=== PATIENT | male | born 1995 | race Caucasian/White ===

== ENCOUNTER 2018-01-13 09:42 | Day surgery (SDC) | payer OTHER, SELFPAY ==
--- NOTE | 2018-01-13 | DI.CT.S_ITS ---
PROCEDURE: CT LUMBAR SPINE W CON INDICATIONS: POST MYELOGRAM LUMBAR RADICULOPATHY TECHNIQUE: After the administration of intravenous Isovue contrast, 3 mm thick sections acquired through the levels of interest. Sagittal and coronal reformats were then constructed. For radiation dose reduction, the following was used: automated exposure control. COMPARISON: None. FINDINGS: Image quality: Excellent. Bones: There is normal alignment and curvature of the lumbar spine. Incidental note made of small Schmorl's nodes in the inferior plate of the T11 vertebral body, superior and inferior plates of the T12, L1, L2 and L4 vertebral bodies and in the superior endplate of the L3 and S1 vertebral bodies. No vertebral body compression fractures. Soft tissues: Conus medullaris ends at L1. Visualized portion of the spinal cord is normal. Visualized paraspinal soft tissues are normal. L1-L2: Slight loss of disc height. Minimal, diffuse disc bulge. No central stenosis. No neural foraminal narrowing. L2-L3: Disc height is normal. Minimal, diffuse disc bulge. No central stenosis. No neural foraminal narrowing. L3-L4: Disc height is normal. Minimal, diffuse disc bulge. No central stenosis. No neural foraminal narrowing. L4-L5: Disc height is normal. Mild, diffuse disc bulge. Moderate-sized central/left central disc protrusion. Disc protrusion abuts and displaces the traversing left L5 nerve root. Mild ligamentum flavum hypertrophy. Moderate narrowing of the central canal secondary to disc disease and ligamentum flavum hypertrophy. Mild right and moderate left neural foraminal narrowing secondary to disc disease. L5-S1: Disc height is normal. Mild diffuse disc bulge with small central disc protrusion superimposed on diffuse disc bulge. Mild central canal secondary to disc disease. Moderate bilateral neural foraminal narrowing secondary to disc disease. IMPRESSION: 1. Mild multilevel degenerative disease. 2. Moderate L4-L5 central canal narrowing. Mild L5-S1 central canal narrowing. 3. Mild right moderate left L4-L5 neural foramen. Moderate bilateral L5-S1 neural foraminal narrowing. 4. Central/left central L4-L5 disc protrusion abuts and displaces the traversing left L5 nerve root. Please correlate with clinical data. Dictated by: Mary Loredo MD, PhD on 01/13/2018 at 13:20 Approved by: Mary Loredo MD, PhD on 01/13/2018 at 13:28
[2018-01-13 09:56] VITALS: BP 123/74; PULSE 61; RESP 16; TEMP 36.2; O2SAT 98; BMI 29.5
--- NOTE | 2018-01-13 09:59 | DI.RAD.S_ITS ---
PROCEDURE: IR INJECT SPINE FOR CT MYELOGRAM INDICATIONS: CONTRAST FOR CT WITH CONTRAST TECHNIQUE: The indications, alternatives, benefits, risks and complications of the procedure were explained to the patient. Written informed consent was obtained and placed in the chart. The patient was placed in a prone position on the fluoroscopy table, and a level was chosen for percutaneous access under fluoroscopic guidance. The skin was prepped and draped in a sterile fashion. After local anaesthetic, a spinal needle was then used to enter the intrathecal space, with return of clear cerebrospinal fluid. 15 mL of Isovue M-200 were administered intrathecally under fluoroscopic visualization. The needle was then withdrawn, and a bandage applied to the puncture site. Fluoroscopic spot films were then acquired in various positions. FINDINGS: Standing frontal, lateral, and oblique views demonstrate a broad-based posterior annular bulge at the L4-5 level, elevating the thecal sac and creating moderate central canal stenosis. Slight blunting of the left L5-S1 nerve root sleeve. No other nerve root sleeve amputation at any level. A small epidural extravasation noted at the injection level.. Access level: Left L4-5 Medications: 1% lidocaine for local anaesthesia. Complications: Patient was transferred to CT for subsequent CT myelogram. IMPRESSION: 1. Successful fluoroscopically guided administration of iodinated contrast into the lumbar spine central canal for CT myelogram. 2. Broad-based annular bulge L4-5. Slight blunting of the left L5-S1 sleeve. Referred to CT report for further evaluation. 3. Mild epidural extravasation at L4-5. Dictated by: Prateek Almanzar M.D. on 01/13/2018 at 13:05 Approved by: Prateek Almanzar M.D. on 01/13/2018 at 13:12
[2018-01-13 11:05] LABS: Hematocrit 48.2 % (41-53)
[2018-01-13 11:06] LABS: Prothrombin Time 11.1 SECONDS (10.1-12.7)
[2018-01-13 11:25] VITALS: BP 122/73; PULSE 69; RESP 14; O2SAT 97
[2018-01-13 11:34] VITALS: BP 121/56; PULSE 63; RESP 14; O2SAT 97
[2018-01-13 12:03] VITALS: BP 125/70; PULSE 58; RESP 16; O2SAT 95
[2018-01-13 12:15] VITALS: BP 110/76; PULSE 83; TEMP 36.6
[2018-01-13 13:20] VITALS: BP 112/75; PULSE 51; RESP 16; TEMP 36.7; O2SAT 98
== END 2018-01-13 13:26 | disposition home or self-care (01) ==
PROVIDERS: Specialist
DX: M51.16 Intervertebral disc disorders with radiculopathy, lumbar region (principal)
CPT/HCPCS: 62284; 72132; 77003; 85014; 85610

== ENCOUNTER → 2021-03-21 15:58 | Outpatient (CLI) | payer OTHER, SELFPAY ==
--- NOTE | 2021-03-21 16:03 | DI.RAD.S_ITS ---
PROCEDURE: XR SHOULDER RT MIN 2V INDICATIONS: XRAY- INJURY TO RIGHT SHOULDER TECHNIQUE: 3 views of the shoulder were acquired. COMPARISON: None. FINDINGS: Bones: No fractures or dislocations. No suspicious bony lesions. Visualized ribs appear intact. Mild acromioclavicular joint space narrowing. Soft tissues: Calcification involving the rotator cuff. IMPRESSION: 1. Mild acromioclavicular joint degeneration. 2. Mild calcific tendinitis of the rotator cuff. Dictated by: Ld HENDRICKS Interpreted: Francisco Pina MD on 03/21/2021 at 16:21 Transcribed by: ROSARIO on 03/21/2021 at 16:22 Approved by: Rj Vazquez M.D. on 03/22/2021 at 13:36
== END ==
PROVIDERS: Referring Provider Internal Medicine; Visit Provider Internal Medicine
DX: S49.91XA Unspecified injury of right shoulder and upper arm, initial encounter (principal); M19.011 Primary osteoarthritis, right shoulder; M75.31 Calcific tendinitis of right shoulder; X58.XXXA Exposure to other specified factors, initial encounter
CPT/HCPCS: 73030